=== PATIENT | born 1950 ===

== ENCOUNTER → 2021-09-27 15:00 | Outpatient (CLI) | payer OTHER, SELFPAY ==
[2021-09-27 15:30] LABS: Basophils % 0.2 % (0.1-2.0); Eosinophils # 0.1 K/mm3 (0.0-0.4); Eosinophils % 2.7 % (0.1-12.0); Hematocrit 43.2 % (42.0-52.0); Hemoglobin 14.3 g/dL (14.1-18.0); Lymphocytes # 1.4 K/mm3 (0.7-4.5); Lymphocytes % 32.9 % (10-50); Mean Corpuscular HGB Conc 33.1 g/dL (31.8-35.4); Mean Corpuscular Hemoglobin 32.3 pg (27.0-31.2); Mean Corpuscular Volume 97.7 fl (81-94); Mean Platelet Volume 9.8 fl (7.4-10.4); Monocytes # 0.4 K/mm3 (0.1-1.0); Monocytes % 8.7 % (1.7-9.3); Neutrophils # 2.3 K/mm3 (1.8-7.8); Neutrophils % 55.5 % (37.0-80.0); Platelet Count 169 K/mm3 (142-424); Red Blood Count 4.42 M/mm3 (4.60-6.20); Red Cell Distribution Width 13.8 % (11.5-17.5); White Blood Count 4.2 K/mm3 (4.8-10.8)
[2021-09-27 17:48] LABS: Chloride 106 mmol/L (98-107); Potassium 4.7 mmoL/L (3.5-5.1); Sodium 143 mmol/L (136-145)
[2021-09-27 17:51] LABS: Alanine Aminotransferase 39 U/L (12-78); Albumin Level 4.3 g/dl (3.5-5.0); Albumin/Globulin Ratio 1.7 (1.1-1.8); Alkaline Phosphatase 55 U/L (38-126); Anion Gap 13.7 mEq/L (5-15); Aspartate Amino Transferase 36 U/L (15-46); Bilirubin,Total 0.3 mg/dl (0.2-1.3); Blood Urea Nitrogen 22 mg/dl (7-20); Calcium 8.9 mg/dl (8.4-10.2); Carbon Dioxide 28 mmol/L (22.0-30.0); Cholesterol 120 mg/dl (140-200); Estimated Glomerular Filt Rate 83 ml/min (>60); GFR (African American) 101 ML/MIN (>60); Globulin 2.5 g/dL (1.3-3.2); Glucose 87 mg/dl (74-100); Total Protein,Serum 6.8 g/dl (6.3-8.2); Triglycerides 66 mg/dl (30-150); VLDL Cholesterol 13 mg/dL (0-40)
[2021-09-27 17:52] LABS: Chol/HDL Ratio 3.2 (1-3.5); HDL Cholesterol 38 mg/dl (40-60)
[2021-09-27 18:02] LABS: Direct LDL Cholesterol 64.66 mg/dL (100-129)
[2021-09-27 18:22] LABS: Thyroid Stimulating Hormone 3.47 uIU/mL (0.465-4.68)
[2021-09-30 10:34] LABS: Hep B Surface Ab, Qual Non Reactive (.); Hepatitis C Antibody <0.1 s/co ratio (0.0-0.9)
== END ==
PROVIDERS: Visit Provider Internal Medicine
DX: R74.8 Abnormal levels of other serum enzymes (principal); R03.0 Elevated blood-pressure reading, without diagnosis of hypertension; M19.079 Primary osteoarthritis, unspecified ankle and foot; E78.5 Hyperlipidemia, unspecified; N40.1 Benign prostatic hyperplasia with lower urinary tract symptoms
CPT/HCPCS: 80053; 80061; 84443; 85025; 86706; 87380